=== PATIENT | female | born 2000 | race Caucasian/White ===

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

== ENCOUNTER 2020-02-04 21:43 | Emergency (ER) | payer OTHER, SELFPAY ==
--- NOTE | ~2020-02-04 | CT_ITS ---
EXAMINATION: CT brain wo con EXAM DATE: 02/04/2020 22:28 INDICATION: Stroke. TECHNIQUE: Spiral CT of the head was performed without contrast. Axial, coronal and sagittal images were reviewed. The dose-length product (DLP) for this examination was 605.33 mGy-cm. The exposure w as tailored according to patient size, and iterative reconstruction (ASIR) was used as additional dos e reduction technique. There is no prior study for comparison. FINDINGS: There is no acute intraparenchymal hemorrhage. No evidence of intraparenchymal brain mass lesion. No evidence of acute infarction. There is no mass effect or midline shift. The ventricles are normal in size. There are no extra-axial collections. There are no acute calvarial fractures. T he orbits are unremarkable. Soft tissue is unremarkable. The visualized sinuses and mastoid air angi ls are well aerated. IMPRESSION: 1. No acute intracranial findings. Reviewed, dictated and finalized at location A. [employer]OUT WORK[employer]
[2020-02-04 21:58] VITALS: BP 132/88; PULSE 89; RESP 14; TEMP 36.6; O2SAT 97
--- NOTE | 2020-02-04 22:08 | PC.NURSE ---
EDP Alesha notified of patient's symptoms in triage. Per EDP Stoy verbal order read-back, order CT scan of patient's brain.
[2020-02-04 22:29] LABS: Basophils Percent Auto 0.3 % (0.2-1.2); Eosinophils Absolute Auto 0.1 K/mm3 (0-0.3); Eosinophils Percent Auto 0.5 % (0-4.4); Hematocrit 40.7 % (37.0-47.0); Hemoglobin 14.2 g/dL (12.0-15.0); Immature Granulocyte Absolute 0.02 K/mm3 (0.00-0.031); Immature Granulocyte Percent A 0.2 % (0-0.5); Lymphocytes Absolute Auto 2.44 K/mm3 (0.9-3.2); Lymphocytes Percent Auto 23.4 % (18.3-44.2); Mean Corpuscular HGB Conc 34.9 g/dl (32-36); Mean Corpuscular Hemoglobin 31.8 pg (26-34); Mean Corpuscular Volume 91.3 fl (80-100); Mean Platelet Volume 9.6 fl (7.4-10.4); Monocytes Percent Auto 9.2 % (2.6-8.5); Neutrophils Absolute Auto 6.9 K/mm3 (1.3-6.7); Neutrophils Percent Auto 66.4 % (45.5-73.1); Platelet Count Result 308 k/mm3 (150-375); Red Blood Count 4.46 M/mm3 (4.2-5.4); White Blood Count 10.4 K/mm3 (4.5-10.0)
[2020-02-04 22:41] LABS: Alanine Aminotransferase 12 U/L (4-35); Albumin Level 4.6 g/dL (3.7-5.6); Alkaline Phosphatase 92 U/L (45-116); Anion Gap 8 mmol/L (8-16); Aspartate Amino Transferase 24 U/L (14-36); Bilirubin,Total 0.3 mg/dL (0.2-1.3); Blood Urea Nitrogen 10 mg/dL (8-21); Calcium 9.6 mg/dL (8.9-10.7); Carbon Dioxide 28 mmol/L (22-30); Chloride 105 mmol/L (98-107); Estimated CRCL calculation 124 ml/min; Estimated Glomerular Filt Rate > 60; Glucose 98 mg/dL (65-105); Potassium 3.8 mmol/L (3.4-5.0); Sodium 141 mmol/L (134-143)
[2020-02-04 23:42] VITALS: BP 127/77; PULSE 69; RESP 15; O2SAT 98
--- NOTE | 2020-02-04 23:42 | ED.GENADULT ---
HPI - General Adult General Chief complaint: Neuro Symptoms/Deficit Stated complaint: tongue is numb for a week Time Seen by Provider: 02/04/20 23:35 Source: RN notes reviewed History of Present Illness HPI narrative: Patient presents emergency department from home for neurologic deficits. Patient states that she had COVID-19 and was released from 14-day quarantine on 16 January she states approximately 10 days ago she began to experience numbness in the right side of her tongue. She states that in the past several days he been noting seeing a mild asymmetry to her smile on the right states occasionally she will have some mild slurred speech but denies any currently she also notes that she has occasional feeling of blurred vision in the right eye that is subjective she denies any numbness or tingling in the extremities she denies any fevers or chills rhinorrhea sore throat chest pain shortness of breath or any other symptoms. She states she did lose her sense of taste and smell with her symptoms Related Data Allergies Allergy/AdvReac Type Severity Reaction Status Date / Time No Known Allergies Allergy Verified 12/16/19 13:46 Review of Systems Review of Systems: Narrative: Gen.: Denies fevers or chills Eyes: Denies eye pain or visual change ENT: Denies congestion Respiratory: Denies shortness of breath or cough CV: Denies chest pain or palpitations GI: Denies abdominal pain nausea, emesis or diarrhea denies burning, urgency, frequency or hematuria Musculoskeletal: Denies back pain or muscle pain Neuro: See HPI Skin: Denies rash Except as documented, all other systems reviewed and negative [facility] Past Medical History Medical History (Updated 02/05/20 @ 00:27 by Scott Eduardo DO) COVID-19 Family History Family History (Updated 12/16/19 @ 13:48 by Katie Saldaña) Mother Heart disease Father No problems noted. Grandparent Diabetes mellitus Grandparent Heart disease Diabetes mellitus Grandparent , Age 52 [place] Heart disease Diabetes mellitus Grandparent No problems noted. Social History Social History Smoking status: Never smoker Alcohol intake: never Substance use: never Exam Narrative: Exam Narrative: APPEARANCE: No acute distress, nontoxic, resting in bed HEENT: Normocephalic, atraumatic, OMM, TMs clear bilaterally EYES: PERRL, EOMI NECK: Supple, nontender, full range of motion without pain, no meningismus RESPIRATORY: No respiratory distress, clear to auscultation bilaterally with no rhonchi wheezing or rales CARDIOVASCULAR: RRR s murmur ABDOMINAL: Soft, nontender, nondistended MUSCULOSKELETAL: Moves all extremities. No clubbing, cyanosis or edema. NEURO: A and O ?3, following commands, speech normal, patient able to fully close eyes mild right facial droop with smiling only,muscle strength 5 out of 5 bilateral upper and lower extremities tongue midline with protrusion SKIN:: Warm, dry. Normal Color PSYCHIATRIC: Normal affect/mood Course Course Emergency Course: Discussed with patient results of workup and diagnosis. Discussed need for follow-up with primary care, proper use of medication, and reasons to return to the emergency department. Patient understands and agrees to current treatment plan Vital Signs Vital signs: Vital Signs Temperature 97.8 F 02/04/20 21:58 Pulse Rate 89 02/04/20 21:58 Respiratory Rate 14 02/04/20 21:58 Blood Pressure 132/88 02/04/20 21:58 Pulse Oximetry 97 02/04/20 21:58 Temperature 97.8 F 02/04/20 21:58 Pulse Rate 69 02/04/20 23:42 Respiratory Rate 15 02/04/20 23:42 Blood Pressure 127/77 02/04/20 23:42 Pulse Oximetry 98 02/04/20 23:42 Medical Decision Making MDM Narrative Medical decision making narrative: Patient with COVID-19 shortly after began to develop numbness to the right side of her tongue and then mild right facial droop
[2020-02-04] MEDS: predniSONE 20 MG TABLET 60 MG PO (23:50)
[2020-02-05 00:41] VITALS: BP 121/78; PULSE 80; RESP 15; O2SAT 99
== END 2020-02-05 00:42 | disposition home or self-care (01) ==
PROVIDERS: Emergency Provider Emergency Medicine; PCP Internal Medicine
DX: G51.0 Bell's palsy (principal); Z86.19 Personal history of other infectious and parasitic diseases
CPT/HCPCS: 36415; 70450; 80053; 85025; 99284; J7512

== ENCOUNTER 2021-03-10 21:56 | Emergency (ER) | payer OTHER, SELFPAY ==
--- NOTE | ~2021-03-10 | XR_ITS ---
EXAMINATION: XR chest 1V portable DATE: 03/11/2021 01:27 INDICATION: Midsternal chest pain. TECHNIQUE: A single frontal view of the chest was obtained. COMPARISON: Chest single view 05/31/2019 FINDINGS: The chest demonstrates clear lungs without pneumonia, pleural effusion, or pneumothorax. Th e heart size is normal. IMPRESSION: 1. No acute cardiopulmonary disease. Reviewed, dictated and finalized at location A. [employer]IAL EQUIPMENT WIRER
[2021-03-10 22:04] VITALS: BP 142/79; PULSE 88; RESP 16; TEMP 36.9; O2SAT 99
--- NOTE | 2021-03-10 22:08 | ECG_ITS ---
Measurements Intervals [place] Rate: 77 P: 71 MI: 164 QRS: 29 QRSD: 80 T: 47 QT: 360 QTc: 409 Interpretive Statements SINUS RHYTHM INCOMPLETE RIGHT BUNDLE BRANCH BLOCK BORDERLINE ST ABNORMALITY- ANTERIOR LEADS BASELINE WANDER- AVL, AVF BORDERLINE ECG Electronically Signed On 03-11-2021 7:22:24 BLADDER TRIMMER by Baldo Oliva D.O.
[2021-03-11 01:18] VITALS: BP 122/78; PULSE 68; RESP 14; O2SAT 100
[2021-03-11 01:19] VITALS: PULSE 74
--- NOTE | 2021-03-11 01:37 | ED.GENADULT ---
HPI - General Adult General Chief complaint: Chest Pain Stated complaint: chest pain, anxiety x1wk Time Seen by Provider: 03/11/21 01:04 History of Present Illness HPI narrative: Patient is a 20-year-old female who presents the emergency department with chief complaint of chest discomfort. Patient states for the last week she has been having discomfort in her chest patient does report that there is a sharp component that is worse with inspiration and improved with rest. 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 The patient states she was told that the EKG looked fine on tonight had worsening symptoms and decided to come to the emergency department for evaluation. Related Data Home Medications Medication Instructions Recorded Confirmed cetirizine 10 mg capsule 10 mg PO DAILY PRN 12/22/20 12/22/20 Allergies Allergy/AdvReac Type Severity Reaction Status Date / Time No Known Allergies Allergy Verified 03/10/21 21:58 Review of Systems Review of Systems: A 10 system review of systems was completed on the patient and is negative except for what is stated in the HPI. Nursing and ancillary documentation was reviewed. [facility] Past Medical History Medical History COVID-19 Seasonal allergies Family History Family History Mother Heart disease Father No problems noted. Grandparent Diabetes mellitus Grandparent Heart disease Diabetes mellitus Grandparent , Age 52 [place] Heart disease Diabetes mellitus Grandparent No problems noted. Social History Social History Smoking status: Never smoker Alcohol intake: never Substance use: never Exam Narrative: GENERAL: Well-appearing, well-nourished, and in no acute distress. HEAD: Normocephalic, atraumatic. EYES: PERRLA and EOMI. ENT: Nares clear, no rhinorrhea or epistaxis. Mucous membranes moist. NECK: Supple. CHEST: Clear to auscultation. No respiratory distress. HEART: Regular rate and rhythm. No murmur heard. Normal peripheral pulses. ABDOMEN: Soft, nontender, nondistended, normal active bowel sounds. EXTREMITIES: Normal range of motion. No edema. SKIN: Warm, dry, no rash. NEURO: No focal deficits. Alert and oriented x3. PSYCH: Normal mood and affect. Course Course Emergency Course: EKG is sinus rhythm rate of [address] elevation or ST depression Chest x-ray shows no focal infiltrate no widened mediastinum no pneumothorax Vital Signs Vital signs: Vital Signs Temperature 36.9 C 03/10/21 22:04 Pulse Rate 88 03/10/21 22:04 Respiratory Rate 16 03/10/21 22:04 Blood Pressure 142/79 H 03/10/21 22:04 Pulse Oximetry 99 03/10/21 22:04 Temperature 36.9 C 03/10/21 22:04 Pulse Rate 74 03/11/21 01:19 Respiratory Rate 14 03/11/21 01:18 Blood Pressure 122/78 03/11/21 01:18 Pulse Oximetry 100 03/11/21 01:18 Medical Decision Making Vital Signs Vital Signs: Vital Signs Temperature 36.9 C 03/10/21 22:04 Pulse Rate 88 03/10/21 22:04 Respiratory Rate 16 03/10/21 22:04 Blood Pressure 142/79 H 03/10/21 22:04 Pulse Oximetry 99 03/10/21 22:04 Temperature 36.9 C 03/10/21 22:04 Pulse Rate 74 03/11/21 01:19 Respiratory Rate 14 03/11/21 01:18 Blood Pressure 122/78 03/11/21 01:18 Pulse Oximetry 100 03/11/21 01:18 Lab Data Result diagrams: 03/11/21 01:20 03/11/21 01:20 Labs: Lab Results 03/11/21 03/11/21 03/11/21 Range/Units 01:20 01:20 01:20 WBC 8.4 (4.5-10.0) K/mm3 RBC 4.61 (4.2-5.4) M/mm3 Hgb 14.9 (12.0-15.0) g/dL Hct 43.4 (37.0-47.0) % MCV 94.1 (80-100) fl MCH 32.3 (26-34) pg MCHC 34.3 (32-36) g/dl RDW 11.
[2021-03-11 01:38] LABS: Basophils Percent Auto 0.4 % (0.2-1.2); Eosinophils Percent Auto 0.4 % (0-4.4); Hematocrit 43.4 % (37.0-47.0); Hemoglobin 14.9 g/dL (12.0-15.0); Immature Granulocyte Absolute 0.03 K/mm3 (0.00-0.031); Immature Granulocyte Percent A 0.4 % (0-0.5); Lymphocytes Absolute Auto 2.32 K/mm3 (0.9-3.2); Lymphocytes Percent Auto 27.6 % (18.3-44.2); Mean Corpuscular HGB Conc 34.3 g/dl (32-36); Mean Corpuscular Hemoglobin 32.3 pg (26-34); Mean Corpuscular Volume 94.1 fl (80-100); Mean Platelet Volume 9.9 fl (7.4-10.4); Monocytes Absolute Auto 0.8 K/mm3 (0.1-0.6); Monocytes Percent Auto 9.9 % (2.6-8.5); Neutrophils Absolute Auto 5.2 K/mm3 (1.3-6.7); Neutrophils Percent Auto 61.3 % (45.5-73.1); Platelet Count Result 291 k/mm3 (150-375); Red Blood Count 4.61 M/mm3 (4.2-5.4); Red Cell Distribution Width 11.7 % (11.5-14.5); White Blood Count 8.4 K/mm3 (4.5-10.0)
[2021-03-11 01:51] LABS: Alanine Aminotransferase 16 U/L (4-35); Albumin Level 4.9 g/dL (3.5-5.1); Alkaline Phosphatase 58 U/L (38-126); Anion Gap 8 mmol/L (8-16); Aspartate Amino Transferase 23 U/L (14-36); Bilirubin,Total 0.5 mg/dL (0.2-1.3); Blood Urea Nitrogen 7 mg/dL (7-17); Calcium 9.6 mg/dL (8.4-10.2); Carbon Dioxide 25 mmol/L (22-30); Chloride 105 mmol/L (98-107); Estimated CRCL calculation 121 ml/min; Estimated Glomerular Filt Rate > 60; Glucose 99 mg/dL (65-110); Lipase 70 U/L (23-300); Potassium 3.4 mmol/L (3.4-5.0); Sodium 138 mmol/L (137-145)
[2021-03-11 01:54] LABS: INR 0.9; Prothrombin Time 12.5 Seconds (11.1-14.7)
[2021-03-11 01:55] LABS: Partial Thromboplastin Time 27.5 SECONDS (22.3-36.8)
[2021-03-11 02:03] LABS: NT Pro B Type Natriuretic Pept 32 pg/mL (5-100); Troponin I < 0.012 ng/mL (0.000-0.034)
[2021-03-11 02:04] LABS: D Dimer 0.27 ug/mL (<0.48)
[2021-03-11 02:08] LABS: Add Urine Microscopic? YES; Appearance Urine Clear (Clear); Bacteria Urine Trace /hpf; Bilirubin Urine Negative (Negative); Blood Urine Negative (Negative); Color Urine Yellow (Yellow); Glucose Urine UA Negative (Negative); Ketones Urine Trace mg/dL (Negative); Leukocyte Esterase Ur Negative LEU/UL (Negative); Mucus Urine Few /lpf; Nitrate Urine Negative (Negative); Protein Urine Negative (Negative); RBC Urine 0-2 /hpf (0-2); Specific Grav Ur 1.013 (1.001-1.035); Squamous Epithelial Cell Urine Occasional /hpf (Few); Urobilinogen Urine Negative mg/dL (<2.0)
[2021-03-11] MEDS: BELLADONNA ALK/PHENOB ELIX 10 ML, MAG HYDROX/ALUMINUM HYD/SIMETH 30 ML, LIDOCAINE HCL 2... PO (02:16)
[2021-03-11 02:55] VITALS: BP 115/78; PULSE 78; RESP 16; O2SAT 100
== END 2021-03-11 02:10 | disposition home or self-care (01) ==
PROVIDERS: Emergency Provider Emergency Medicine; PCP Internal Medicine
DX: R07.89 Other chest pain (principal); Z86.16 Personal history of COVID-19; I45.10 Unspecified right bundle-branch block; R94.31 Abnormal electrocardiogram [ECG] [EKG]
CPT/HCPCS: 36415; 71045; 80053; 81001; 81025; 83690; 83880; 84484; 85025; 85380; 85610; 85730; 93005; 99284; A9270

== ENCOUNTER 2023-08-28 14:13 | Outpatient (CLI) | payer OTHER, SELFPAY ==
--- NOTE | ~2023-08-28 | US_ITS ---
EXAMINATION: US pelvic complete w TV INDICATION: Amenorrhea. Comparison:No prior studies for comparison. TECHNIQUE: Multiple transabdominal and endovaginal sonographic images of the pelvis performed. FINDINGS: The uterus measures 6.5 x 3.9 x 3.1 cm. The endometrial complex measures 11 mm. The right ovary measures 2.2 x 2.4 x 1.9 cm and the left ovary measures 2.5 x 1.2 x 1 cm. There are small follicles in each ovary. Normal doppler signal in both ovaries. There is no free fluid in the pelvis. There are no abnormal masses seen on either side. IMPRESSION: 1. Unremarkable pelvic ultrasound. Reviewed, dictated and finalized at location B.
== END 2023-08-28 14:14 ==
LOC: GOSHIMG 14:14
PROVIDERS: PCP Nurse Practitioner Obstetrics & Gynecology; Visit Provider Nurse Practitioner Obstetrics & Gynecology
DX: N91.2 Amenorrhea, unspecified (principal)
CPT/HCPCS: 76830; 76856

== ENCOUNTER 2024-01-08 15:00 | Emergency (ER) | payer OTHER, SELFPAY ==
[2024-01-08] VITALS (21 sets, daily range): BP systolic 103–150; BP diastolic 58–87; PULSE 63–120; RESP 12–26; TEMP 36.3; O2SAT 95–100
[2024-01-08] MEDS: ONDANSETRON HCL ODT 4 MG TABLET 8 MG PO (15:24)
[2024-01-08] MEDS: LORazepam (*CRX) 1 MG TABLET PO (15:25)
--- NOTE | 2024-01-08 15:31 | ED_ITS ---
HPI - Anxiety General Chief Complaint: Anxiety Stated Complaint: HYPERVENTILATING,?ANXIETY Time Seen by Provider: 01/08/24 15:08 Source: patient Mode of arrival: ambulatory Limitations: no limitations History of Present Illness HPI narrative: 23 YEARS OLD WHITE FEMALE CAME TO THE ED BY PRIVATE CAR WITH SUDDEN ONSET OF NAUSEA, NUMBNESS OF THE FACE, NUMBNESS OF THE UPPER EXTREMITIES, JITTERY FEELING INSIDE, SHAKING FEELING OUTSIDE, HYPERVENTILATION, SPASM OF THE FINGERS AND TOES, FEELING LIKE GOING TO PASS OUT, HISTORY OF PANIC ATTACK. PATIENT DENIES ANY STRESSFUL EVENT TODAY DIFFERENT THAN USUAL. SHE DENIES ANY PAIN, FEVER, CHILLS OR URINARY SYMPTOMS, SHE REPORT THAT SHE IS POSSIBLY Related Data Allergies Allergy/AdvReac Type Severity Reaction Status Date / Time No Known Allergies Allergy Verified 01/08/24 15:06 Review of Systems Review of Systems: All systems reviewed & are unremarkable except as noted in HPI and below PMFSH Past Medical History Medical History COVID-19 PCOS (polycystic ovarian syndrome) Seasonal allergies Family History Family History Mother Heart disease Father No problems noted. Grandparent Diabetes mellitus Grandparent Heart disease Diabetes mellitus Grandparent , Age 52 [place] Heart disease Diabetes mellitus Grandparent No problems noted. Social History Social History Social History: caffeine-rarely Smoking status: Never smoker Alcohol intake: current Drinks per week: 4 Alcohol use details: occasionally Substance use: never Substance use type: marijuana Lack of Transportation: No Lack of Food: Never True Current Housing: I Have Housing Concerned About Future Housing: No Difficulty Paying Gas/Electric Bills: No Difficulty Paying for Meds: No Currently Unemployed: No Education: High School Diploma/GED Difficulty w/ Childcare or Family Care: No Exam Narrative: GENERAL APPEARANCE: WELL-DEVELOPED, WELL-NOURISHED, RESTLESS SKIN: NORMAL COLOR HEAD: NORMOCEPHALIC, NONTRAUMATIC EYES: CLEAR CONJUNCTIVA ENT: OROPHARYNX NORMAL, EARS NORMAL, NOSE NORMAL NECK: SUPPLE, NONTENDER CHEST AND RESPIRATORY: AIRWAY PATENT, NO RESPIRATORY DISTRESS, NO ACCESSORY MUSCLE USE HEART: TACHYCARDIA ABDOMEN: SOFT, NONTENDER, NO ORGANOMEGALY, QUIET BOWEL SOUNDS VASCULAR: NORMAL PERIPHERAL PULSES, NORMAL CAPILLARY REFILL. MUSCULOSKELETAL: CARPOPEDAL SPASM NEUROLOGIC: ALERT AND ORIENTED ?3, LONG FILLER CIGAR ROLLER MACHINE IS NORMAL TESTED, NO GROSS MOTOR DEFICIT Course Vital Signs Vital signs: Vital Signs Temperature 36.3 C L 01/08/24 15:02 Pulse Rate 120 H 01/08/24 15:02 Respiratory Rate 26 H 01/08/24 15:02 Blood Pressure 150/79 H 01/08/24 15:02 Pulse Oximetry 98 01/08/24 15:02 Oxygen Delivery Room Air 01/08/24 15:02 Temperature 36.3 C L 01/08/24 15:02 Pulse Rate 120 H 01/08/24 15:02 Respiratory Rate 26 H 01/08/24 15:02 Blood Pressure 150/79 H 01/08/24 15:02 Pulse Oximetry 98 01/08/24 15:02 Oxygen Delivery Room Air 01/08/24 15:02 MDM - Anxiety Lab Data Labs: Lab Results 01/08/24 01/08/24 Range/Units 17:36 17:45 Urine Color Yellow (Yellow) Urine Appearance Clear (Clear) Urine pH 7.0 (5.0-9.0) Ur Specific [place] 1.003 (1.001-1.035) Urine Protein Negative (Negative) mg/dL Urine Glucose (UA) Negative (Negative) mg/dL Urine Ketones 1+ H (Negative) mg/dL Ur Blood (Man) 2+ H (Negative) Urine Nitrate Negative (Negative) Urine Bilirubin Negative (Negative) Urine Urobilinogen 0.2 (<2.0) mg/dL Leukocyte Esterase Rfl Negative (Negative) HERIBERTO/UL Urine RBC 0-2 (0-2) /hpf Urine WBC 0-5 (0-3) /hpf Ur Squamous Epith Cells None seen (Few) /hpf Urine Bacteria None seen /hpf Urine Casts 0-2 POC Urine HCG, Qual Negative (Negative) Discharge Plan Discharge Clinical Impression: Panic attack Patient Disposition: Home, Self-Care Condition: Improved Instructions: Anxiety in Adolescents (ED) Additional Instructions: RETURN IF SYMPTOMS ARE WORSENING , CALL YOUR FAMILY PHYSICIAN FOR APPOINTMENT, TAKE TYLENOL NEEDED FOR ACHES AND PAIN, CONTINUE HOME MEDICATIONS. Prescriptions: No Action omeprazole 20 mg capsule,delayed release(DR/EC) 20 mg PO DAILY PRN (Reason: heartburn) Qty: 30 2RF Follow-up/Referrals: Harriet Martins APRN [Primary Care Provider] -
[2024-01-08 17:46] LABS: BEDSIDEPREGUCG Negative (Negative)
[2024-01-08 17:49] LABS: Add Urine Microscopic? YES; Appearance Urine Clear (Clear); Bacteria Urine None Seen /hpf; Bilirubin Urine Negative (Negative); Blood Urine 2+ (Negative); Color Urine Yellow (Yellow); Glucose Urine UA Negative (Negative); Ketones Urine 1+ mg/dL (Negative); Leukocyte Esterase Ur Negative LEU/UL (Negative); Nitrate Urine Negative (Negative); Non Pathogenic Casts 0-2; Protein Urine Negative (Negative); RBC Urine 0-2 /hpf (0-2); Specific Grav Ur 1.003 (1.001-1.035); Squamous Epithelial Cell Urine None Seen /hpf (Few); Urobilinogen Urine 0.2 mg/dL (<2.0); WBC Urine 0-5 /hpf (0-3)
== END 2024-01-08 18:19 | disposition home or self-care (01) ==
PROVIDERS: Emergency Provider Emergency Medicine; PCP Nurse Practitioner Obstetrics & Gynecology
DX: F41.0 Panic disorder [episodic paroxysmal anxiety] (principal); Z86.16 Personal history of COVID-19
CPT/HCPCS: 81001; 81025; 99283; A9270